=== PATIENT | female | born 1965 | race Caucasian/White ===

== ENCOUNTER 2017-08-17 18:15 | Emergency (ER) | payer BC ==
[2017-08-17 18:25] VITALS: BP 136/70
[2017-08-17] MEDS ORDERED: Lidocaine 2% PF * 5 ML VIAL INJ ONE (18:39)
--- NOTE | 2017-08-17 18:42 | UC ---
Laceration HPI - HPI Summary HPI Summary: While unloading clay hoister glass broke, lacerating base of R thumb. Pt applied bandages and wrapped at home, but wound continued to bleed. Has stopped now, but not sure the bandages will hold. - History Of Current Complaint Chief Complaint: UCLaceration Stated Complaint: THUMB INJURY Time Seen by Provider: 08/17/17 18:32 Hx Obtained From: Patient Hx Last Menstrual Period: post Laceration Location: Finger Mechanism Of Injury: Sharp Trauma Onset/Duration: Sudden Onset Severity: Moderate Aggravating Factors: Nothing - Allergies/Home Medications Allergies/Adverse Reactions: Allergies Allergy/AdvReac Type Severity Reaction Status Date / Time Morphine Allergy HALLUCINATIONS Verified 08/17/17 18:25 SEVERE Sulfa Antibiotics Allergy LESIONS Verified 08/17/17 18:25 GENTIALS, HANDS Thimerosal Allergy EYE LID Verified 08/17/17 18:25 SCARS Home Medications: Home Medications Dihydroergotamine Mesylate [Migranal] 4 mg NA PRN 08/17/17 [History] Pepcid 1 tab PO BID 08/17/17 [History Confirmed 08/17/17] PMH/Surg Hx/FS Hx/Imm Hx Previously Healthy: Yes Cardiovascular History: Hypertension - situational Other History Of: Negative For: HIV, Hepatitis B, Hepatitis C - Surgical History Surgical History: Yes Surgery Procedure, Year, and Place: 1990 LEEP FOR CERVICAL DYSPLASIA, [facility] OFF[facility]. 06/2014 LEFT SHOULDER ORIF, LEFT ANKLE SPLINTING, [facility]. 07/2014 ORIF LEFT ANKLE, [facility]. ORAL SURGERY 30YEARS AGO - Family History Known Family History: Positive: None - Social History Occupation: Employed Full-time Lives: With Family Alcohol Use: None Alcohol Amount: drinking at least 2 bottles of wine per day or 1 box Substance Use Type: None Smoking Status (MU): Former Smoker Type: Cigarettes Amount Used/How Often: 1 PPD LESS WHEN SHE FINALLY QUIT Length of Time of Smoking/Using Tobacco: 5 YEARS Have You Smoked in the Last Year: No When Did the Patient Quit Smoking/Using Tobacco: approx. 29yrs ago (1984) - Immunization History Most Recent Influenza Vaccination: 2013 Most Recent Tetanus Shot: unknown Most Recent Pneumonia Vaccination: not recieved Review of Systems Constitutional: Negative Skin: Other - R thumb lac Eyes: Negative ENT: Negative Respiratory: Negative Cardiovascular: Negative Gastrointestinal: Negative Genitourinary: Negative Motor: Negative Neurovascular: Negative Musculoskeletal: Negative Neurological: Negative Psychological: Negative Is Patient Immunocompromised?: No All Other Systems Reviewed And Are Negative: Yes Physical Exam Triage Information Reviewed: Yes Appearance: Well-Appearing, No Pain Distress, Well-Nourished Vital Signs: Initial Vital Signs Temp 97.7 F 08/17/17 18:21 Pulse 61 08/17/17 18:21 Resp 16 08/17/17 18:21 BP 136/70 08/17/17 18:21 Pulse Ox 100 08/17/17 18:21 Vital Signs Reviewed: Yes Eye Exam: Normal Eyes: Positive: Conjunctiva Clear ENT Exam: Normal ENT: Positive: Normal ENT inspection, Hearing grossly normal, Pharynx normal, TMs normal Dental Exam: Normal Neck exam: Normal Neck: Positive: Supple, Nontender, No Lymphadenopathy Respiratory Exam: Normal Respiratory: Positive: Chest non-tender, Lungs clear, Normal breath sounds, No respiratory distress, No accessory muscle use Cardiovascular Exam: Normal Cardiovascular: Positive: RRR, No Murmur Musculoskeletal Exam: Normal, Other - Full strength and ROM in R thumb Musculoskeletal: Positive: Strength Intact, ROM Intact Psychological Exam: Normal Skin Exam: Other - 3cm lac to dorsal base of R thumb, large amount of dried blood, no active bleeding Laceration Repair - Laceration Repair 1 Description: Linear Laceration Size After Repair: Length (cm) - 3, Width (mm) - 0, Depth (mm) - 0 Modified For Repair: No Type Injection: Local Anesthesia Used: 2.0% Lido - 2mL Cleansing Completed Via Routine Prep: Yes Irrigation With Pressure Irrigation Device: Yes Closure Material: Sutures Closure Method: Single Layer Suture Of: Skin Suture Type: Nylon - #5 5-0 Laceration Course/Dx - Differential Dx - Laceration/Wound Provider Diagnoses: R thumb laceration repair Discharge - Discharge Plan Condition: Stable Disposition: HOME Patient Education Materials: Laceration (ED) Referrals: Vicente Ryan MD [Primary Care Provider] - Additional Instructions: Come back in 9-10 days for suture removal. Come back sooner if you suspect infection or other problems. Brief handwashing and showers are ok -- make sure you do not spend time in a wet bandage.
== END 2017-08-17 19:39 | disposition home or self-care (01) ==
LOC: UCEAST 18:15
DX: S61.011A Laceration without foreign body of right thumb without damage to nail, initial encounter (principal); W25.XXXA Contact with sharp glass, initial encounter; Y93.G1 Activity, food preparation and clean up; Y92.9 Unspecified place or not applicable; Z72.89 Other problems related to lifestyle; Z87.891 Personal history of nicotine dependence
CPT/HCPCS: 12002; 12032; 99211; G0463

== ENCOUNTER 2017-08-27 13:31 | Emergency (ER) | payer BC ==
[2017-08-27 14:38] VITALS: BP 124/77
[2017-08-27] MEDS ORDERED: Benzoin Compound STICK TOPICAL ONE (14:42)
[2017-08-27] MEDS ORDERED: Benzoin Compound STICK ONE (14:44)
--- NOTE | 2017-08-27 15:00 | UC ---
HPI Wound/Suture Re-check - HPI Summary HPI Summary: here for suture removal right thumb sutures in 10 days no complaints - History Of Current Complaint Chief Complaint: UCLaceration Stated Complaint: suture removal Time Seen by Provider: 08/27/17 14:40 Hx Obtained From: Patient Hx Last Menstrual Period: iud Onset/Duration: Sudden Onset Pain Intensity: 0 Pain Scale Used: 0-10 Numeric Procedure Type: lac repair - Allergies/Home Medications Allergies/Adverse Reactions: Allergies Allergy/AdvReac Type Severity Reaction Status Date / Time Morphine Allergy HALLUCINATIONS Verified 08/17/17 18:25 SEVERE Sulfa Antibiotics Allergy LESIONS Verified 08/17/17 18:25 GENTIALS, HANDS Thimerosal Allergy EYE LID Verified 08/17/17 18:25 SCARS PMH/Surg Hx/FS Hx/Imm Hx Previously Healthy: Yes Psychological History: Anxiety Other History Of: Negative For: HIV, Hepatitis B, Hepatitis C - Surgical History Surgical History: Yes Surgery Procedure, Year, and Place: 1990 LEEP FOR CERVICAL DYSPLASIA, [facility] OFF[facility]. 06/2014 LEFT SHOULDER ORIF, LEFT ANKLE SPLINTING, [facility]. 07/2014 ORIF LEFT ANKLE, [facility]. ORAL SURGERY 30YEARS AGO - Family History Known Family History: Positive: Hypertension - Social History Alcohol Use: None Alcohol Amount: drinking at least 2 bottles of wine per day or 1 box Substance Use Type: None Smoking Status (MU): Former Smoker Type: Cigarettes Amount Used/How Often: 1 PPD LESS WHEN SHE FINALLY QUIT Length of Time of Smoking/Using Tobacco: 5 YEARS Have You Smoked in the Last Year: No When Did the Patient Quit Smoking/Using Tobacco: approx. 29yrs ago (1984) - Immunization History Most Recent Influenza Vaccination: 2013 Most Recent Tetanus Shot: unknown Most Recent Pneumonia Vaccination: not recieved Review of Systems Constitutional: Negative Skin: Negative Eyes: Negative ENT: Negative Respiratory: Negative Cardiovascular: Negative Gastrointestinal: Negative Genitourinary: Negative Motor: Negative Neurovascular: Negative Musculoskeletal: Negative Neurological: Negative Psychological: Negative Is Patient Immunocompromised?: No All Other Systems Reviewed And Are Negative: Yes Physical Exam Triage Information Reviewed: Yes Appearance: Well-Appearing, No Pain Distress, Well-Nourished Vital Signs: Initial Vital Signs Temp 98.7 F 08/27/17 14:33 Pulse 77 08/27/17 14:33 Resp 16 08/27/17 14:33 BP 124/77 08/27/17 14:33 Pulse Ox 100 08/27/17 14:33 Vital Signs Reviewed: Yes Eyes: Positive: Conjunctiva Clear ENT: Positive: Hearing grossly normal. Negative: Nasal congestion, Nasal drainage, Trismus, Muffled voice, Hoarse voice Neck: Positive: Supple, No Lymphadenopathy Respiratory: Positive: No respiratory distress, No accessory muscle use Musculoskeletal: Positive: ROM Intact, No Edema, Other: - good cap refill Neurological: Positive: Alert Psychological Exam: Normal Skin Exam: Other - healing lac Course/Dx - Course Course Of Treatment: 4 sutures removed. steri strips applied - Differential Dx - Laceration/Wound Provider Diagnoses: suture removal right thumb Discharge - Discharge Plan Condition: Stable Disposition: HOME Referrals: Vicente Ryan MD [Primary Care Provider] - Additional Instructions: sutures removed leave steri strips on until they fall off if still on after one week gently remove them recheck for any problems call for any questions
== END 2017-08-27 15:02 | disposition home or self-care (01) ==
LOC: UCEAST 13:31
DX: S61.011D Laceration without foreign body of right thumb without damage to nail, subsequent encounter (principal); W45.8XXD Other foreign body or object entering through skin, subsequent encounter; F41.9 Anxiety disorder, unspecified; Z88.5 Allergy status to narcotic agent; Z88.2 Allergy status to sulfonamides; Z87.891 Personal history of nicotine dependence
CPT/HCPCS: 99211; G0463

== ENCOUNTER 2017-12-02 20:46 | Emergency (ER) | payer BC, OTHER ==
--- NOTE | 2017-12-02 21:24 | UC ---
Complaint Female HPI - HPI Summary HPI Summary: Pt presents with urinary pressure, frequency, and urgency since last night. She says that she gets UTIs often and this feels the same. Denies fever, chills, flank pain, abdominal pain, n/v/d/c. Is currently taking AZO for her symptoms. - History Of Current Complaint Stated Complaint: UTI Time Seen by Provider: 12/02/17 21:22 Hx Obtained From: Patient Hx Last Menstrual Period: iud Onset/Duration: Sudden Onset Timing: Constant Severity Initially: Mild Severity Currently: Moderate Pain Intensity: 5 Pain Scale Used: 0-10 Numeric - Allergies/Home Medications Allergies/Adverse Reactions: Allergies Allergy/AdvReac Type Severity Reaction Status Date / Time morphine Allergy Hallucinati Verified 12/02/17 21:26 ons Sulfa (Sulfonamide Allergy Lesions on Verified 12/02/17 21:26 Antibiotics) genitals and hands thimerosal Allergy eye lid Verified 12/02/17 21:26 scars PMH/Surg Hx/FS Hx/Imm Hx Psychological History: Anxiety Other History Of: Negative For: HIV, Hepatitis B, Hepatitis C - Surgical History Surgical History: Yes Surgery Procedure, Year, and Place: 1990 LEEP FOR CERVICAL DYSPLASIA, [facility]. 06/2014 LEFT SHOULDER ORIF, LEFT ANKLE SPLINTING, [facility]. 07/2014 ORIF LEFT ANKLE, [facility]. ORAL SURGERY 30YEARS AGO - Family History Known Family History: Positive: Hypertension - Social History Occupation: Employed Full-time Lives: With Family Alcohol Use: None Alcohol Amount: previously drinking at least 2 bottles of wine per day or 1 box Substance Use Type: None Smoking Status (MU): Former Smoker Type: Cigarettes Amount Used/How Often: 1 PPD LESS WHEN SHE FINALLY QUIT Length of Time of Smoking/Using Tobacco: 5 YEARS Have You Smoked in the Last Year: No When Did the Patient Quit Smoking/Using Tobacco: approx. 29yrs ago (1984) - Immunization History Most Recent Influenza Vaccination: 2013 Most Recent Tetanus Shot: unknown Most Recent Pneumonia Vaccination: not recieved Review of Systems Constitutional: Negative Skin: Negative Respiratory: Negative Cardiovascular: Negative Genitourinary: Dysuria, Frequency, Urgency Neurovascular: Negative Musculoskeletal: Negative Neurological: Negative Psychological: Negative All Other Systems Reviewed And Are Negative: Yes Physical Exam - Summary Physical Exam Summary: GENERAL: NAD. WDWN. No pain distress. SKIN: No rashes, sores, ulcers, masses, lesions. NECK: Supple. Nontender. No lymphadenopathy. CHEST: CTAB. No r/r/w. No accessory muscle use. Breathing comfortably and in no distress. CV: RRR. Without m/r/g. Pulses intact. Brisk cap refill. ABDOMEN: Soft. NTTP. No distention or guarding. No organomegaly. No CVA tenderness. Bowel sounds present x4. NEURO: Alert. CN II-XII grossly intact. PSYCH: Age appropriate behavior. Triage Information Reviewed: Yes Complaint Female Dx - Course Course Of Treatment: UA unable to test due to AZO. Will treat symptomatically with Macrobid and send for culture. - Differential Dx/Diagnosis Provider Diagnoses: UTI Discharge - Sign-Out/Discharge Documenting (check all that apply): Discharge/Admit/Transfer - Discharge Plan Condition: Stable Disposition: HOME Prescriptions: Nitrofurantoin Macrocrystal [Nitrofurantoin] 100 mg PO BID #10 capsule Patient Education Materials: Urinary Tract Infection in Women (ED) Referrals: Vicente Ryan MD [Primary Care Provider] - Additional Instructions: If you develop a fever, shortness of breath, chest pain, new or worsening symptoms - please call your PCP or go to the ED. - Billing Disposition and Condition Condition: STABLE Disposition: HOME
[2017-12-02 21:26] VITALS: BP 117/74
[2017-12-02] MEDS ORDERED: Nitrofurantoin Macrocrystals* 50 MG CAP PO ONE (21:38)
== END 2017-12-02 21:40 | disposition home or self-care (01) ==
LOC: UCEAST 20:46
DX: N39.0 Urinary tract infection, site not specified (principal); Z87.891 Personal history of nicotine dependence; Z88.5 Allergy status to narcotic agent; Z88.2 Allergy status to sulfonamides
CPT/HCPCS: 81003; 87077; 87086; 87186; 99212; A9270-GY; G0463

== ENCOUNTER 2018-01-30 05:49 | Day surgery (SDC) | payer BC, OTHER ==
[~2018-01-30 05:49] MED LIST: Buffered Lidocaine 0.9% SYRIN* 5 ML/SYR SYRINGE INTRADERM ONE
[2018-01-30] MEDS ORDERED: Buffered Lidocaine 0.9% SYRIN* 5 ML/SYR SYRINGE ONE (06:02)
[2018-01-30] MEDS ORDERED: fentaNYL* 50 MCG/ML 2 ML VIAL (100 MCG VIAL) ONE (07:10)
[2018-01-30] MEDS ORDERED: Midazolam* 1 MG/ML 2 ML VIAL (2 MG) ONE (07:10)
[2018-01-30] MEDS ORDERED: Lidocaine 2% PF * 5 ML VIAL ONE (07:33)
[2018-01-30] MEDS ORDERED: Dexamethasone IV* 4 MG/ML 1 ML (4 MG) ONE (07:33)
[2018-01-30] MEDS ORDERED: Propofol* 10 MG/ML 20 ML BTL IV PUSH ONE (07:33)
[2018-01-30] MEDS ORDERED: Famotidine IV* 10 MG/ML 2 ML (20 mg) ONE (07:33)
[2018-01-30] MEDS ORDERED: Ketorolac INJ* 30 MG/ML 1 ML VIAL ONE (07:33)
[2018-01-30] MEDS ORDERED: Naloxone* 0.4 MG/ML 1 ML VIAL IV PRN (07:47)
[2018-01-30] MEDS ORDERED: PROCHLORPERAZINE INJ 5 MG/ML 2 ML VIAL IV PRN (07:47)
[2018-01-30] MEDS ORDERED: Acetaminophen TAB* 325 MG PO PRN (07:47)
[2018-01-30] MEDS ORDERED: DiMENhydriNATE IV* 50 MG/ML VIAL IV PUSH PRN (07:47)
[2018-01-30] MEDS ORDERED: fentaNYL* 50 MCG/ML 2 ML VIAL (100 MCG VIAL) IV PRN (07:47)
[2018-01-30] MEDS ORDERED: EPHEDrine (Pressors)* 50 MG/ML VIAL ONE (07:49)
[2018-01-30 09:31] VITALS: BP 131/80
--- NOTE | 2018-01-31 05:04 | OP ---
OPERATIVE REPORT: DATE OF OPERATION: 01/30/18 DATE OF : 65 SURGEON: Morales Mcneil MD ANESTHESIA: General endotracheal tube. PRE-OP DIAGNOSIS: Lost IUD arms. POST-OP DIAGNOSIS: Lost IUD arms. OPERATIVE PROCEDURE: Hysteroscopy, removal of IUD arms. COMPLICATIONS: None. FINDINGS: On exam under anesthesia, the uterus was mid positioned. Cervix, vagina, and vulva appear ed normal. On hysteroscopy, both IUD arms were separate and found at the apex of the endocervical ca nal, but not imbedded. DESCRIPTION OF PROCEDURE: The patient identified, procedure identified as a hysteroscopy. The patie nt was taken to the operating room and prepped and draped in the usual fashion in the dorsal lithotom y position under general anesthesia. Two single-tooth tenaculums were placed on the anterior lip of t he cervix. Cervix was easily dilated up to a #24 Shaq dilator. The hysteroscope was inserted and th e above findings were noted. The grasper was placed through the operative arm of the scope and the I UD arms were grasped and removed. At the end of the procedure, the cavity appeared normal and empty. Good hemostasis was verified. All instruments were removed from the vagina and the patient sent to recovery room in stable condition. [id number]/[facility] #: [id number]
== END 2018-01-30 09:29 | disposition home or self-care (01) ==
LOC: OR 05:49
PROVIDERS: ATTEND Obstetrics & Gynecology
DX: T83.31XA Breakdown (mechanical) of intrauterine contraceptive device, initial encounter (principal); I10 Essential (primary) hypertension; X58.XXXA Exposure to other specified factors, initial encounter
CPT/HCPCS: J1100; J1885; J2250; J2704; J3010

== ENCOUNTER 2021-09-16 17:03 | Inpatient (IN) ==
[2021-09-16 19:09] LABS: ABS Eosinophils 0.1 10^3/ul (0-0.6); ABS Lymphocytes 1.2 10^3/ul (1.0-4.8); ABS Monocytes 0.5 10^3/ul (0-0.8); ABS Neutrophils 4.3 10^3/ul (1.5-7.7); Eosinophil % 0.9 %; Hematocrit 41 % (35-47); Lymphocyte % 20.4 %; Mean Corpuscular HGB Conc 34 g/dL (31-36); Mean Corpuscular Hemoglobin 32 pg (27-31); Mean Corpuscular Volume 94 fL (80-97); Mean Platelet Volume 6.9 fL (7.4-10.4); Nucleated Red Blood Cells % 0.1; Platelet Count 279 10^3/uL (150-450); Red Blood Count 4.38 10^6 /uL (3.70-4.87); Red Cell Distribution Width 14 % (10-15); White Blood Count 6.1 10^3/uL (3.5-10.8)
[2021-09-16 19:10] LABS: Urine Appearance Cloudy; Urine Bilirubin Negative (Negative); Urine Blood Negative (Negative); Urine Color Yellow; Urine Glucose Negative (Negative); Urine Ketones Trace (Negative); Urine Nitrite Negative (Negative); Urine Protein Negative (Negative); Urine Specific Gravity 1.018 (1.002-1.030); Urine Urobilinogen Negative (Negative)
[2021-09-16 19:30] LABS: ALT 14 U/L (7-52); AST 32 U/L (13-39); Albumin 4.2 g/dL (3.2-5.2); Albumin/Globulin Ratio 1.7 (1-3); Alkaline Phosphatase 80 U/L (35-149); Anion Gap 10 mmol/L (2-11); Blood Urea Nitrogen 12 mg/dL (6-24); CO2 Carbon Dioxide 26 mmol/L (22-32); Calcium 9.1 mg/dL (8.6-10.3); Chloride 99 mmol/L (101-111); Globulin 2.5 g/dL (2-4); Glucose 83 mg/dL (70-100); Sodium 135 mmol/L (135-145); Total Protein 6.7 g/dL (6.4-8.9); eGFR CKD-EPI 96.5 (>60)
[2021-09-16 19:37] LABS: Urine Benzodiazepine Screen None Detected (None Detect); Urine Cannabinoids Screen None Detected (None Detect)
[2021-09-16 19:50] LABS: Acetaminophen < 15 mcg/mL; Alcohol, S < 13 mg/dL (<13); Salicylate < 2.50 mg/dL (<30)
[2021-09-16 20:05] LABS: TSH Ultra Thyroid Stim Horm 2.65 mcIU/mL (0.34-5.60)
[2021-09-16 22:42] LABS: Urine Opiates Screen None Detected (None Detect)
[2021-09-17] MEDS ORDERED: Al Hydrox/Mg Hydrox/Simet LIQ 30 ML UDC PO PRN (03:15)
[2021-09-17] MEDS ORDERED: Fluticasone NASAL SPRAY 50MCG 16 gm SPRAY BTL INTRANASAL PRN (03:16)
[2021-09-17] MEDS: Ondansetron ODT 4 mg TAB 4 MG TAB PO PRN ×2 (07:49→11:55)
[2021-09-17] MEDS: Vitamin THERAPEUTIC TAB PO SCH (07:54)
[2021-09-18] MEDS: Vitamin THERAPEUTIC TAB PO SCH (07:29)
[2021-09-18] MEDS: Ondansetron ODT 4 mg TAB 4 MG TAB PO PRN (07:31)
[2021-09-19 07:50] LABS: HDL Cholesterol 97.6 mg/dL
[2021-09-19] MEDS: Vitamin THERAPEUTIC TAB PO SCH (08:30)
[2021-09-20] MEDS: Vitamin THERAPEUTIC TAB PO SCH (08:24)
[2021-09-21 07:47] VITALS: BP 128/76
[2021-09-21] MEDS: Vitamin THERAPEUTIC TAB PO SCH (08:50)
== END 2021-09-21 15:15 | disposition home or self-care (01) | DRG 751 ==
LOC: ED 17:03 → BSU 09-17 01:54
PROVIDERS: ADMIT Psychiatry & Neurology Psychiatry; ATTEND Psychiatry & Neurology Psychiatry